=== PATIENT | female | born 1970 | race Caucasian/White ===

== ENCOUNTER → 2017-03-14 | Outpatient (CLI) | payer MEDICAID ==
[~2017-03-14] MED LIST: ACET500C5 PO; D-ME118S6 PO; IBUP-1542 PO; MULT1TAB59 PO; depo-provera
--- NOTE | 2017-03-14 16:07 | RADRPT ---
Echocardiogram Report Patient Name: NELI MENDOZA Gender: Female Date: 1970 Study Date: 14-Mar-2017 Slot Floorperson: Berny [facility] Location: EKG Ref. Physician: DORIS THOMPSON Quality: Adequate Procedures: Transthoracic echocardiogram with complete 2D, M-Mode, and doppler examination. Indications: Breast CA. 2D/M Mode Doppler Measurement Value Normal Ranges Measurement Value Normal Ranges LVIDd 2D 4.6 3.5 - 5.6 cm AV Peak Yonathan 1.4 m/sec LVIDs 2D 3.0 2.1 - 4.1 cm AV Peak PG 8.0 mmHg FS 2D 35.1 % LVOT Peak Yonathan 1.1 m/sec LVPWd 2D 1.1 0.6 - 1.1 cm LVOT Peak PG 5.0 mmHg IVSd 2D 1.1 0.6 - 1.1 cm MV E Peak Yonathan 1.1 m/sec IVS/LVPW 2D 1.0 MV A Peak Yonathan 0.8 m/sec AoR Diam 2D 2.4 2.0 - 3.7 cm MV E/A 1.4 LA/Ao 2D 2 0 - 1 MV Decel Time 158 msec EDV 2D 99.9 cm3 MV E/A 1.4 ESV 2D 27.3 cm3 TR Peak Yonathan 2.4 m/sec LA Dimen 2D 3.9 2.3 - 4.0 cm TR Peak PG 22.0 mmHg RVSP 25.0 mmHg Findings Left Ventricle: Normal left ventricular systolic function. Normal left ventricular cavity size. Mild concentric left ventricular hypertrophy. Ejection fraction is visually estimated at 65 %. Right Ventricle: Normal right ventricular size. Normal right ventricular systolic function. Left Atrium: There is mild enlargement of left atrium. Right Atrium: The right atrium is normal in size. Mitral Valve: Mild mitral leaflet calcification. Mild mitral annular calcification. Trace mitral regurgitation. Aortic Valve: Normal appearance of the aortic valve. No significant aortic stenosis or insufficiency. Tricuspid Valve: Normal appearance of the tricuspid valve. Estimated peak PA systolic pressure 25 mmHg. There is trace tricuspid regurgitation. Pulmonic Valve: Pulmonic valve not well visualized. There is trace pulmonic regurgitation. Pericardium: Normal pericardium with no significant pericardial effusion. Aorta: Normal aortic root. IVC: Normal size and normal respiratory collapse consistent with normal right atrial pressure. Conclusions 1.Normal left ventricular systolic function. Normal left ventricular cavity size. Mild concentric left ventricular hypertrophy. Ejection fraction is visually estimated at 65 %. 2.Normal right ventricular size. Normal right ventricular systolic function. 3.There is mild enlargement of left atrium. 4.The right atrium is normal in size. 5.No significant valvular stenosis or regurgitation seen. 6.Normal pericardium with no significant pericardial effusion. Electronically Signed By: Gordon Dela Cruz 14-Mar-2017 16:06:56 -0800 Patient Name: NELI MENDOZA Study Date: 14-Mar-[id number]
== END | disposition home or self-care (01) ==
LOC: EKG 08:55
PROVIDERS: ATTEND Internal Medicine Hematology & Oncology
DX: C50.919 Malignant neoplasm of unspecified site of unspecified female breast (principal)
CPT/HCPCS: 93306

== ENCOUNTER 2017-03-21 07:44 | Day surgery (SDC) | payer MEDICAID ==
[2017-03-21] VITALS (10 sets, daily range): BP systolic 140–152; BP diastolic 67–87; PULSE 86–96; RESP 17–26; Ht 154.9 cm; Wt 107.3 kg
[~2017-03-21] VITALS: Ht 154.9 cm; Wt 107.3 kg
[2017-03-21] MEDS ORDERED: SOD CHLORIDE 0.9% 1,000 ML IV SCH (08:30)
[2017-03-21] MEDS ORDERED: CEFAZOLIN 1 GM/50 ML (PMX) 50 ML IVPB ONE ×2 (08:30→10:28)
[2017-03-21] MEDS ORDERED: POLYMYXIN/BACITRACIN 1L IRRIG IRR ONE (09:00)
[2017-03-21] MEDS ORDERED: TYLENOL (09:14)
[2017-03-21] MEDS ORDERED: HEPARIN 1000 UNITS/ML 10 ML INJ ONE (09:24)
[2017-03-21] MEDS ORDERED: SOD CHLORIDE 0.9% 500 ML ONE (09:25)
[2017-03-21] MEDS ORDERED: LIDOCAINE 1%/EPI 30 ML INJ INJ STA (09:36)
[2017-03-21] MEDS ORDERED: FENTAnyl 50 MCG/ML VIAL ONE (10:29)
[2017-03-21] MEDS ORDERED: MIDAZOLAM 1 MG/ML 2 ML INJ ONE (10:29)
--- NOTE | 2017-03-21 11:40 | RADRPT ---
PROCEDURE: Ultrasound guidance for placement of needle in left internal jugular vein. CLINICAL INDICATION: Venous access. TECHNIQUE: Prior to the procedure, informed consent was obtained. Risks including bleeding, infection, and pneu mothorax were explained to the patient. The patient understood and was willing to proceed. A procedu ral pause was performed. The patient's name, date of , and procedure to be performed were verif ied. The central line was inserted with all elements of maximal sterile barrier technique. All of th e following were used: head covering, facial mask, sterile gown, sterile gloves, a large sterile she et, hand hygiene, and 2% chlorhexidine for cutaneous antisepsis. The left neck and anterior/superi or chest wall was prepped and draped in usual sterile fashion. Limited sonography of the left neck was then performed. Noted is a patent left internal jugular vein . Ultrasound images were recorded and stored in the patient's medical record. Following the local injection of Xylocaine, the left internal jugular vein was punctured under sonog raphic guidance with a 20-gauge needle through which a 0.018 inch floppy tip guidewire was advanced into the superior vena cava. The patient tolerated the procedure well. The remainder of the proced ure was performed and dictated under separate cover. COMPARISON: None. FINDINGS: The ultrasound images demonstrate a patent left internal jugular vein. The subsequent images demons trate the needle entering the left internal jugular vein. IMPRESSION: 1. Ultrasound guidance for a needle placement in left internal jugular vein. RPTAT: QQ .Griffin Saldana MD, Date Time Electronically viewed and signed by .Griffin Saldana MD, on 03/21/2017 11:40 .R/
--- NOTE | 2017-03-21 11:41 | RADRPT ---
PROCEDURE: FLUOROSCOPIC AND ULTRASONOGRAPHIC-GUIDED PLACEMENT OF LEFT CHEST PORT. CLINICAL INDICATION: History of right breast cancer. Venous access for chemotherapy. TECHNIQUE: INTRAPROCEDURE MEDICATIONS: PB antibiotic solution 40 cc applied topically. 1 gram Ancef intravenous ly, intra-op. IV Versed and Fentanyl per protocol. TECHNIQUE: Informed consent was obtained. The procedure, risks, benefits, complications and alternat nicolás were explained to the patient. Risks including bleeding, infection, and pneumothorax were expl ained. The patient understood and was willing to proceed. A procedural pause was performed. The patient's name, date of , and procedure to be performed w ere verified. The central line was inserted with all elements of maximal sterile barrier technique. All of the fol lowing were used: head covering, facial mask, sterile gown, sterile gloves, a large sterile sheet, h and hygiene, and 2% chlorhexidine for cutaneous antisepsis. The left neck and anterior/superior chest wall were prepped and draped in usual sterile fashion. Limited sonography of the left neck was then performed. Noted is a patent left internal jugular vein . Following the local injection of 1% lidocaine, the left internal jugular vein was punctured under so nographic guidance with a 20-gauge needle through which a 0.018 inch floppy tip guidewire was advanc ed into the superior vena cava with fluoroscopic guidance. The tract was dilated to 5 Spanish and t he wire was then replaced with a 0.035 in Glidewire. Serial dilatation was then performed and a 7 F rench peel away sheath was introduced. A site just inferior to the clavicle in the superior anterior left chest wall was localized. One per cent lidocaine was used as local anesthesia. A transverse 3 cm incision was made utilizing a 15 blad e scalpel. Utilizing blunt dissection a subcutaneous pocket was created inferior to the incision. Th e cavity was flushed with approximately 40 cc of PB antibiotic solution. The catheter was tunneled underneath the skin from the newly created pocket to the puncture site in the neck. The central line catheter was pulled through the tract. The catheter was then advanced thr ough the sheath until the tip was positioned in the right atrium. The peel-away sheath was removed. The catheter was flushed and clamped. The catheter was then connected to the 6.6 Spanish [employer] power port. The port was then placed into the pocket. Prior to closing the instrument and sponge count was verified and was correct. The subcutaneous tissue was closed with 3-0 Vicryl interrupted suture. The skin at the site of the pock et and in the neck was closed with 4-0 Vicryl suture in a running subcuticular technique. The port w as flushed with 2000 units of heparin in 2 cc utilizing a Marques needle. The needle was removed. A dr essing was applied. The patient tolerated procedure well. COMPARISON: None. FINDINGS: Ultrasound images were recorded and stored in the patient's medical record. Final radiographic images demonstrate the tip of the catheter in the upper right atrium. A total of 0.4 minutes of fluoroscopy time was used. The ultrasound images demonstrate the needle entering th e jugular vein. 6 images of the chest were obtained with image intensifier. IMPRESSION: 1. Successful ultrasonographic and fluoroscopic guided placement of left chest port. RPTAT: QQ .Griffin Saldana MD, MD Date Time Electronically viewed and signed by .Griffin Saldana MD, on 03/21/2017 11:41 .R/
[2017-03-21] MEDS ORDERED: HYDROCODONE/APAP (5/325) TAB PO PRN (12:00)
== END 2017-03-21 14:40 | disposition home or self-care (01) ==
LOC: SDS 07:44
PROVIDERS: ATTEND Internal Medicine Hematology & Oncology
DX: C50.911 Malignant neoplasm of unspecified site of right female breast (principal); E66.01 Morbid (severe) obesity due to excess calories; Z68.41 Body mass index [BMI] 40.0-44.9, adult
CPT/HCPCS: 36561; 76942; C1788; J0690; J1644; J2250; J3010; J7040; Z7610

== ENCOUNTER 2017-05-30 15:48 | Inpatient (IN) | END 2017-06-01 20:05 | disposition home or self-care (01) | DRG 580 ==

== ENCOUNTER 2017-07-26 19:49 | Inpatient (IN) | END 2017-08-05 16:56 | disposition home or self-care (01) | DRG 193 ==